=== PATIENT | female | born 1975 ===

== ENCOUNTER 2024-05-19 05:03 | Day surgery (SDC) | payer OTHER ==
[~2024-05-19 05:03] MED LIST: MAXALT MLT10 MG; TROKENDI XR100 MG
[2024-05-19] MEDS ORDERED: CEFAZOLIN SODIUM 1,000 MG VIAL ONE (08:19)
[2024-05-19] MEDS ORDERED: BUPIVACAINE HCL/MPF 0.5% 30ML VIAL ONE (08:39)
[2024-05-19] MEDS ORDERED: FAMOTIDINE/PF 20 MG/10 ML SYRINGE IV SCH (09:45)
[2024-05-19] MEDS ORDERED: CEFAZOLIN SODIUM 1,000 MG VIAL IV SCH (09:45)
[2024-05-19] MEDS ORDERED: MORPHINE SULFATE 4 MG/ML VIAL IV ONE (10:20)
== END 2024-05-19 12:15 | disposition home or self-care (01) ==
LOC: CIR.AMB 05:03
PROVIDERS: ATTEND Specialist
DX: K80.10 Calculus of gallbladder with chronic cholecystitis without obstruction (principal); G43.909 Migraine, unspecified, not intractable, without status migrainosus